=== PATIENT | male | born 1995 | race African-American/Black ===

== ENCOUNTER 2017-05-18 17:19 | Emergency (ER) | payer MEDICARE, OTHER | END 2017-05-18 19:04 | disposition home or self-care (01) | LOC: ER 17:19 | DX: T18.9XXA Foreign body of alimentary tract, part unspecified, initial encounter (principal); F90.9 Attention-deficit hyperactivity disorder, unspecified type; F32.9 Major depressive disorder, single episode, unspecified; F12.10 Cannabis abuse, uncomplicated; Z88.1 Allergy status to other antibiotic agents; X58.XXXA Exposure to other specified factors, initial encounter; Y93.89 Activity, other specified; Y92.89 Other specified places as the place of occurrence of the external cause; Y99.8 Other external cause status | CPT/HCPCS: 70360; 99284 ==

== ENCOUNTER 2018-05-29 17:17 | Emergency (ER) | payer OTHER, MEDICAID ==
[~2018-05-29] VITALS: Ht 190.5 cm; Wt 72.6 kg
[2018-05-29 18:01] VITALS: BP 123/58
[2018-05-29] MEDS ORDERED: METH4TAB2 PO (18:12)
--- NOTE | 2018-05-29 18:12 | PHYS DOC ---
Past Medical History Past Medical History: Depression, Other Additional Past Medical Histor: ADHD Past Surgical History: No Surgical History Alcohol Use: None Drug Use: Marijuana Adult General Chief Complaint Chief Complaint: SORE THROAT HPI HPI Patient is a 22 year old male who presents with swelling to his uvula for one week. He denies any pain with swallowing. States has had no fevers or vomiting. More of an irritating feeling when his uvula touches his throat when he swallows.[] Review of Systems Review of Systems Constitutional: Denies fever or chills [] Eyes: Denies change in visual acuity, redness, or eye pain [] HENT: Denies nasal congestion or sore throat [] Respiratory: Denies cough or shortness of breath [] Cardiovascular: No additional information not addressed in HPI [] GI: Denies abdominal pain, nausea, vomiting, bloody stools or diarrhea [] : Denies dysuria or hematuria [] Musculoskeletal: Denies back pain or joint pain [] Integument: Denies rash or skin lesions [] Neurologic: Denies headache, focal weakness or sensory changes [] Endocrine: Denies polyuria or polydipsia [] All other systems were reviewed and found to be within normal limits, except as documented in this note. Allergies Allergies Allergies Coded Allergies Type Severity Reaction Last Updated Verified amoxicillin Allergy Unknown Rash 08/12/14 No Physical Exam Physical Exam Constitutional: Well developed, well nourished, no acute distress, non-toxic appearance. [] HENT: Normocephalic, atraumatic, UVULA SLIGHTLY SWOLLEN, oropharynx moist, no oral exudates, nose normal. [] Neck: Normal range of motion, no tenderness, supple, no stridor. [] Skin: Warm, dry, no erythema, no rash. [] Neurologic: Alert and oriented X 3, normal motor function, normal sensory function, no focal deficits noted. [] Psychologic: Affect normal, judgement normal, mood normal. [] Current Patient Data Vital Signs Vital Signs Date Time Temp Pulse Resp B/P (MAP) Pulse Ox O2 Delivery O2 Flow Rate FiO2 05/29/18 18:01 97.9 48 16 123/58 (79) 96 Room Air 97.9 EKG EKG [] Radiology/Procedures Radiology/Procedures [] Course & Med Decision Making Course & Med Decision Making Pertinent Labs and Imaging studies reviewed. (See chart for details) [No evidence of infectious process, patient is given a Medrol Dosepak for swelling to the uvula. Recommend close follow-up with primary care doctor in 2- 3 days and return to ER for new or worsening symptoms.] Dragon Disclaimer Dragon Disclaimer This electronic medical record was generated, in whole or in part, using a voice recognition dictation system. Departure Departure Impression: Primary Impression: Uvular swelling Disposition: HOME, SELF-CARE Condition: STABLE Referrals: JS FERGUSON MD (PCP) Patient Instructions: Uvulitis Scripts Methylprednisolone (MEDROL) 4 Mg Tab.ds.pk 1 PKG PO UD, #1 PKG Prov: HARSHA GALE APRN 05/29/18 HARSHA GALE APRN May 29, 2018 18:12
== END 2018-05-29 18:21 | disposition home or self-care (01) ==
LOC: ER 17:17
DX: K13.79 Other lesions of oral mucosa (principal); F90.9 Attention-deficit hyperactivity disorder, unspecified type; Z88.1 Allergy status to other antibiotic agents
CPT/HCPCS: 99283